=== PATIENT | male | born 1965 | race Caucasian/White ===

== ENCOUNTER 2020-04-18 16:27 | Emergency (ER) | payer OTHER, SELFPAY ==
[2020-04-18 16:44] VITALS: BP 156/110; PULSE 106; RESP 22; TEMP 36.6; O2SAT 99
--- NOTE | 2020-04-18 16:47 | DI.RAD.S_ITS ---
PROCEDURE: XR KNEE LT 3V INDICATIONS: twisting injury unable to bear weight TECHNIQUE: 2 views of the knee were acquired. COMPARISON: None. FINDINGS: Bones: No fractures or dislocations. No suspicious bony lesions. Small osteophytes Soft tissues: A suprapatellar joint effusion. No suspicious soft tissue calcifications. IMPRESSION: No acute osseous abnormality. Consider follow-up MRI of the left knee to evaluate for internal derangement. Dictated by: Raji Wheeler M.D. on 04/18/2020 at 17:14 Approved by: Raji Wheeler M.D. on 04/18/2020 at 17:15
[2020-04-18 19:04] VITALS: BP 148/93; PULSE 107; RESP 16; O2SAT 93
[2020-04-18 19:05] VITALS: BP 148/93; PULSE 111; O2SAT 97
--- NOTE | 2020-04-18 19:24 | ED_ITS ---
HPI - Extremity Injury (Lower) General Chief Complaint: Extremity Injury, Lower Stated Complaint: left knee sprain skiing Time Seen by Provider: 04/18/20 18:09 Source: patient Mode of arrival: Ambulatory Limitations: no limitations History of Present Illness HPI Narrative: 55-year-old male here for evaluation of left knee injury. Patient states he was skiing earlier today when there was an incident where he had a twisting injury to his left knee. He states that initially when it happened he had some minor discomfort on the outside of his knee however was able to continue skiing for the rest of the day. Has been ambulatory on the knee. He states that was not into the ride home when he noticed that the pain is getting worse that he was having swelling in his knee. No prior surgeries to the knee. Has not tried anything for the discomfort prior to arrival. Review of Systems Constitutional Constitutional: Denies fever(s) and Denies headache(s) ENT Ears, Nose, Mouth, and Throat: Denies headache(s) Cardiovascular Cardiovascular: Denies chest pain and Denies dyspnea Respiratory Respiratory: Denies dyspnea Gastrointestinal Gastrointestinal: Denies abdominal pain Musculoskeletal Comments: Left knee pain Integumentary/Breasts Skin/Breast: Denies rash Neurologic Neurologic: Denies behavioral changes and Denies headache(s) Psychiatric Psychiatric: Denies behavioral changes Hematologic/Lymphatic On Anticoagulants: No Allergic/Immunologic Allergic/Immunologic: Denies urticaria Patient History Surgical History No pertinent past surgical history Social History lives independently: Yes Exam Initial Vital Signs Initial Vital Signs: Vital Signs Temperature 97.9 F 04/18/20 16:44 Pulse Rate 106 H 04/18/20 16:44 Respiratory Rate 22 04/18/20 16:44 Blood Pressure 156/110 H 04/18/20 16:44 Pulse Oximetry 99 04/18/20 16:44 Const General: cooperative and comfortable Limitations: mental status not altered HENPA Head: normal to inspection and normocephalic Resp Effort & Inspection: normal respiratory effort Skin Lesions: no lesions Rashes: no rashes Neuro Sensory Exam: no sensory deficits noted Extrem Other: Patient does have an effusion to the left knee. Difficult to obtain any sort of exam secondary to discomfort with any palpation. Patient was unable to bend his knee secondary to pain. Unable to effectively evaluate his MCL PCL LCL and MCL secondary to the discomfort. Procedures Orthopedic Splinting/Casting Injury #1: Side: left Lower Extremity Injury Location: knee Lower Extremity Immobilizer: knee immobilizer Post splinting neuro exam: intact Post splinting vascular exam: intact Placed by: Provider Course Orders Ordered: Discontinued Medications Ketorolac Tromethamine (Ketorolac 60 Mg/2 Ml Vial) 30 mg IM NOW ONE Stop: 04/18/20 19:25 Last Admin: 04/18/20 19:31 Dose: 30 mg Documented by: MMINOR Vital Signs Vital signs: Vital Signs - 8 hr 04/18/20 19:04 04/18/20 19:05 04/18/20 19:30 Pulse Rate 107 H 111 H 113 H Respiratory Rate 16 Blood Pressure 148/93 H 148/93 H Pulse Oximetry 93 97 96 MDM - Extremity Injury (Lower) Imaging Data Extremity x-ray #1: Radiologist's Impression: [address] [id number] ReportSigned Patient: Carlyle CollinsMR#: [id number]: [id number]:[id number]/Sex: 55 / MDate of Service: 04/18/20Loc: EDAccession Number: [id number] Procedure: XR knee LT 3V Ordering Provider: Ibis Santos D.O. PROCEDURE: XR KNEE LT 3V INDICATIONS: twisting injury unable to bear weight TECHNIQUE: 2 views of the knee were acquired. COMPARISON: None. FINDINGS: Bones: No fractures or dislocations. No suspicious bony lesions. Small osteophytes Soft tissues: A suprapatellar joint effusion. No suspicious soft tissue calcifications. IMPRESSION: No acute osseous abnormality. Consider follow-up MRI of the left knee to evaluate for internal derangement. Dictated by: Raji Wheeler M.D. on 04/18/2020 at 17:14 Approved by: Raji Wheeler M.D. on 04/18/2020 at 17:15 [facility] Narrative Medical decision making narrative: There were no fractures on the x-ray. Then obvious effusion to his left knee. Put the patient in a knee immobilizer for his comfort. He has crutches already. No fevers. We did discuss doing a therapeutic tap this I suspect his confusion is blood given his circumstances. The patient declined this. Will have the patient follow-up with his primary doctor to discuss further workup and further imaging to include MRI if needed. Patient expressed understanding and agreement. Discharge Plan Departure Patient Disposition: Home Clinical Impression: Effusion of knee joint, left Instructions: How To Perform RICE (Rest, Ice, Compress, Elevate), DI for Knee Effusion Activity Restrictions/Additional Instructions: There were no fractures on the x-ray. Use the crutches and the knee immobilizer as needed for your comfort. I do recommend you follow-up with a orthopedic provider. Return to the emergency department for any new or worsening symptoms Stand Alone Forms: Work Release Note
[2020-04-18 19:30] VITALS: PULSE 113; O2SAT 96
[2020-04-18] MEDS: KETOROLAC 60 MG/2 ML VIAL 30 MG IM (19:31)
== END 2020-04-18 19:44 | disposition home or self-care (01) ==
PROVIDERS: Emergency Provider Emergency Medicine
DX: M25.462 Effusion, left knee (principal)
CPT/HCPCS: 73562; 96372; 99283; J1885